=== PATIENT | male | born 1935 | race Caucasian/White ===

== ENCOUNTER 2016-05-28 19:02 | Emergency (ER) | payer OTHER ==
[2016-05-28 19:26] VITALS: BP 148/84; PULSE 90; RESP 16; TEMP 97; O2SAT 98
[2016-05-28] MEDS ORDERED: TDAP VACCINE 0.5 ML SUS IM ONE ×2 (19:31→19:33)
== END 2016-05-28 19:42 | disposition home or self-care (01) | DRG 605 ==
LOC: ED 19:02
DX: S00.01XA Abrasion of scalp, initial encounter (principal); W19.XXXA Unspecified fall, initial encounter; Y92.129 Unspecified place in nursing home as the place of occurrence of the external cause
CPT/HCPCS: 90471; 90715; 99282

== ENCOUNTER 2017-07-03 11:15 | Emergency (ER) | payer OTHER ==
[2017-07-03 11:31] VITALS: RESP 18; TEMP 97.6
[2017-07-03 12:07] LABS: BASOPHILS % (AUTO) 1 % (0-3); EOSINOPHILS % (AUTO) 5 % (0-9); HEMATOCRIT 42 % (39-53); MEAN CORPUSCULAR HGB CONC 34.3 gm/dl (32.0-36.0); MEAN CORPUSCULAR VOLUME 97 fL (80-100); MONOCYTES % (AUTO) 13.3 % (0-12); NEUTROPHILS % (AUTO) 57.3 % (37-80)
[2017-07-03 12:20] LABS: CALCIUM 8.7 mg/dl (8.5-10.1); POTASSIUM 4.4 mMol/L (3.5-5.1)
[2017-07-03 12:24] LABS: APPEARANCE,URINE Clear; BILIRUBIN,URINE NEGATIVE (NEGATIVE); COLOR,URINE Yellow; GLUCOSE, URINE (UA) NEGATIVE (NEGATIVE); KETONES,URINE NEGATIVE (NEGATIVE); LEUKOCYTE ESTERASE ,URINE NEGATIVE (NEGATIVE); NITRATE,URINE NEGATIVE (NEGATIVE); OCCULT BLOOD,URINE NEGATIVE (NEG-TRACE); PH,URINE 6.5
[2017-07-03 12:32] VITALS: BP 152/96; PULSE 75; O2SAT 100
[2017-07-03 12:36] LABS: RBC,URINE 0-2 (0-3AV/HPF); WBC,URINE 0-2 (0-5AV/HPF)
== END 2017-07-03 12:50 | disposition home or self-care (01) | DRG 914 ==
LOC: ED 11:15
DX: S09.8XXA Other specified injuries of head, initial encounter (principal); S00.81XA Abrasion of other part of head, initial encounter; W19.XXXA Unspecified fall, initial encounter
CPT/HCPCS: 36415; 70450; 72125; 80048; 81001; 82962; 85025; 93005; 99284

== ENCOUNTER 2017-08-14 05:36 | Emergency (ER) | payer OTHER ==
[2017-08-14 06:10] VITALS: RESP 18
[2017-08-14] MEDS ORDERED: ACETAZOLAMIDE 500 MG CER PO ONE (06:22)
[2017-08-14] MEDS ORDERED: ACETAMINOPHEN 500 MG 500 MG TAB ONE ×2 (06:24→06:29)
[2017-08-14] MEDS ORDERED: ACETAMINOPHEN 500 MG 500 MG TAB PO ONE (06:26)
[2017-08-14 06:36] VITALS: PULSE 80
[2017-08-14 07:12] VITALS: BP 148/84; TEMP 98; O2SAT 99
== END 2017-08-14 07:08 | disposition home or self-care (01) | DRG 605 ==
LOC: ED 05:36 → SUPCPDRO 05:36 → ED 07:08
DX: S01.01XA Laceration without foreign body of scalp, initial encounter (principal); S09.8XXA Other specified injuries of head, initial encounter; W19.XXXA Unspecified fall, initial encounter; R40.2412 Glasgow coma scale score 13-15, at arrival to emergency department
CPT/HCPCS: 12002; 70450; 99284; 99285; A9270-GY